=== PATIENT | female | born 2000 | race Caucasian/White ===

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

== ENCOUNTER 2020-10-25 07:28 | Inpatient (IN) ==
[2020-10-25] MEDS ORDERED: OXYTOCIN 30 UNITS/500 ML BAG IV PRN ×2 (07:59→08:02)
--- NOTE | 2020-10-25 08:04 | Obstetrical Progress Note ---
Date of Service cervical joy placed under sterile condition. 30cc saline into bulb, tolerated well October 25, 2020 Assessment & Plan Admission and Anticipated Discharge Date Admission Date: October 25, 2020 Results & Data ([facility]) Vital Signs (Past 12 Hours) Vital Signs Pulse BP 10/25/20 07:35 90 138/88 10/25/20 07:33 82 138/88 PG Care Time/CCT Total # of Minutes Spent Total Time Spent with Patient: Total time spent is greater than 50% in coordination of care (as documented) at patient's floor/unit and/or counseling patient: Coding Level of Care Code None CPT Codes Misx Procedure Codes - 23692 Placement of cervical dilator: 56799 Placement of cervical dilator ([id number]) 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
[2020-10-25 08:17] LABS: Hematocrit (blood only) 34.5 % (37-47); Hemoglobin 11.4 g/dL (12.0-16.0); Mean Corpuscular Hemoglobin 27.3 pg (25-34); Mean Corpuscular Volume 82.7 fL (80-100); Mean Platelet Volume 10.4 fL (7.4-10.4); Platelet Count 321 K/uL (130-400); RDW Standard Deviation 44.8 fL (36.4-46.3); Red Blood Count 4.17 M/uL (4.2-5.4)
[2020-10-25] MEDS ORDERED: PENICILLIN G POTASSIUM 6 MU in DEXTROSE 5% 250 ML IV ONE (08:30)
[2020-10-25] MEDS: LACTATED RINGER'S 1,000 ML IV PRN ×3 (08:50→20:34)
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
--- NOTE | 2020-10-25 11:04 | Labor Progress Brief Note ---
Date of Service October 25, 2020 Subjective joy bulb out Assessment & Plan (1) Supervision of normal intrauterine in primigravida: 20 y/o G1 at 40 wga presenting for elective IOL VSS Fetus cat 1 Labor - will start pit and titrate GBS+ - PCN epidural PRN (2) Morbid obesity: Admission and Anticipated Discharge Date Admission Date: October 25, 2020 Physical Exam Genitourinary: Manual OB Exam: + cervical dilation 3 cm, + cervical effacement 50% and + station -2 OB Exam Monitor Tracing: + external FHT monitor used, + external uterine monitor used (irreg ctx) and + category I (135/mod/+accel/- decel) Results & Data ([facility]) Vital Signs (Past 12 Hours) Vital Signs Temp Pulse Resp BP 10/25/20 10:46 76 125/63 10/25/20 07:38 98.8 F 20 10/25/20 07:35 90 138/88 10/25/20 07:33 82 138/88 Coding Level of Care Code None Diagnoses Supervision of normal intrauterine in primigravida Z34.00 Morbid obesity E66.01
[2020-10-25] MEDS: PENICILLIN G POTASSIUM 3 MU in DEXTROSE 5% 100 ML IV PRN ×3 (12:30→20:32)
--- NOTE | 2020-10-25 15:04 | Labor Progress Brief Note ---
Date of Service October 25, 2020 Subjective Feeling more contraction Assessment & Plan (1) Supervision of normal intrauterine in primigravida: 20 y/o G1 at 40 wga presenting for elective IOL VSS Fetus cat 1 Labor - pit at 13, now s/p arom GBS+ - PCN epidural PRN (2) Morbid obesity: Admission and Anticipated Discharge Date Admission Date: October 25, 2020 Physical Exam Genitourinary: Manual OB Exam: + cervical dilation (3-4cm), + cervical effacement 70%, + station -2 and + amniotic fluid (AROM) clear OB Exam Monitor Tracing: + external FHT monitor used, + external uterine monitor used (q2-3) and + category I (135/mod/+accel/-decel) Results & Data ([facility]) Vital Signs (Past 12 Hours) Vital Signs Temp Pulse Resp BP 10/25/20 14:42 77 158/76 H 10/25/20 13:30 70 18 116/55 L 10/25/20 12:38 72 124/60 10/25/20 11:55 73 128/74 10/25/20 10:46 98.2 F 76 20 125/63 10/25/20 07:38 98.8 F 20 10/25/20 07:35 90 138/88 10/25/20 07:33 82 138/88 Coding Level of Care Code None Diagnoses Supervision of normal intrauterine in primigravida Z34.00 Morbid obesity E66.01
[2020-10-25] MEDS ORDERED: SODIUM CHLORIDE 0.9% INJ 10 ML VIAL ONE (15:54)
[2020-10-25] MEDS ORDERED: ePHEDrine sulfate 50 MG/ML AMP ONE (15:54)
[2020-10-25] MEDS ORDERED: BUPIVACAINE 0.25% 30 ML VIAL ONE (15:55)
[2020-10-25] MEDS ORDERED: fentaNYL citrate 100 MCG/2 ML VIAL ONE (15:55)
[2020-10-25] MEDS ORDERED: fentaNYL 2MCG/ML ROPIVACAINE 1.25MG/ML 100 ML BAG EPI ONE (15:55)
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
[2020-10-25] MEDS ORDERED: fentaNYL 2MCG/ML ROPIVACAINE 1.25MG/ML 100 ML BAG EPI PRN (17:06)
[2020-10-25] MEDS ORDERED: NALOXONE HCL 1 MG in SODIUM CHLORIDE 0.9% 1000ML 1,000 ML IV PRN (17:06)
[2020-10-25] MEDS ORDERED: ePHEDrine sulfate 50 MG/ML AMP IV PRN (17:06)
[2020-10-25] MEDS ORDERED: diphenhydrAMINE 50 MG/ML VIAL IV PRN (17:06)
[2020-10-25] MEDS ORDERED: NALOXONE HCL 0.4 MG/1 ML VIAL/CARP IV PRN (17:06)
[2020-10-25] MEDS ORDERED: ONDANSETRON INJ 2 MG/ML 2 ML VIAL IV PRN (17:06)
--- NOTE | 2020-10-25 18:10 | Labor Progress Brief Note ---
Date of Service October 25, 2020 Subjective comfortable w/ epidural Assessment & Plan (1) Supervision of normal intrauterine in primigravida: 20 y/o G1 at 40 wga presenting for elective IOL VSS Fetus cat 1 Labor - pit at 17, continue titration GBS+ - PCN epidural in place (2) Morbid obesity: Admission and Anticipated Discharge Date Admission Date: October 25, 2020 Physical Exam Genitourinary: Manual OB Exam: + cervical dilation 4 cm, + cervical effacement 70% and + station -2 OB Exam Monitor Tracing: + external FHT monitor used, + external uterine monitor used (q2-5) and + category II (145/mod/- accel/intermittent variables) Results & Data ([facility]) Vital Signs (Past 12 Hours) Vital Signs Temp Pulse Resp BP Pulse Ox 10/25/20 18:04 95 H 121/69 10/25/20 18:03 99 H 98 10/25/20 18:00 77 116/56 L 10/25/20 17:58 74 98 10/25/20 17:54 75 114/57 L 10/25/20 17:53 78 96 10/25/20 17:50 20 10/25/20 17:48 74 115/64 97 10/25/20 17:45 81 122/57 L 10/25/20 17:43 80 99 10/25/20 17:39 75 124/56 L 10/25/20 17:38 76 97 10/25/20 17:35 20 10/25/20 17:33 87 116/62 100 10/25/20 17:30 95 H 116/66 10/25/20 17:28 77 98 10/25/20 17:23 92 H 125/63 99 10/25/20 17:20 20 10/25/20 17:18 79 128/61 100 10/25/20 17:13 90 109/55 L 100 10/25/20 17:09 99.7 F H 20 10/25/20 17:08 95 H 125/57 L 100 10/25/20 17:06 78 123/61 10/25/20 17:04 88 124/57 L 10/25/20 17:03 92 H 100 10/25/20 17:02 85 132/58 L 10/25/20 17:00 83 141/58 H 10/25/20 16:58 93 H 142/73 H 100 10/25/20 16:56 101 H 134/71 10/25/20 16:54 83 132/72 10/25/20 16:53 96 H 100 10/25/20 16:52 91 H 136/83 10/25/20 16:48 93 H 100 10/25/20 16:43 91 H 100 10/25/20 16:38 108 H 100 10/25/20 16:33 89 100 10/25/20 15:38 98.4 F 80 20 141/85 H 10/25/20 14:42 77 158/76 H 10/25/20 13:30 70 18 116/55 L 10/25/20 12:38 98.2 F 72 20 124/60 10/25/20 11:55 73 128/74 10/25/20 10:46 98.2 F 76 20 125/63 10/25/20 07:38 98.8 F 20 10/25/20 07:35 90 138/88 10/25/20 07:33 82 138/88 Coding Level of Care Code None Diagnoses Supervision of normal intrauterine in primigravida Z34.00 Morbid obesity E66.01
[2020-10-25] MEDS ORDERED: NURSING L&D Epidural Breakthrough Pain Update ONE (22:21)
--- NOTE | 2020-10-26 00:06 | Delivery Summary ---
Vaginal Delivery Summary Date of Service October 25, 2020 PREOPERATIVE DIAGNOSIS: 1. Single intrauterine at 40 wga 2. Elective IOL 3. GBS+ 4. BMI 49 POSTOPERATIVE DIAGNOSIS: 1. Single intrauterine at 40 wga 2. Elective IOL 3. GBS+ 4. BMI 49 5. Delivered PROCEDURE: 1. Normal spontaneous vaginal delivery. SURGEON: Cierra Boss MD ANESTHESIA: Epidural. ESTIMATED BLOOD LOSS: 300 mL FLUIDS: Continuous LR. URINE OUTPUT: None. COMPLICATIONS: None. CONDITION: Stable. INDICATIONS: 20 y/o G1 at 40wga presents for elective IOL. Penicillin was started for GBS ppx. SVE was 1cm on admission and so 30cc joy bulb was placed and pitocin was started. Pitocin was titrated up following joy bulb expulsion. She underwent artificial rupture of membranes and received epidural for pain control. She then progressed to complete and desired to push. FINDINGS: A viable female infant with Apgars of 8 and 9 at 1 and 5 minutes respectively. SPECIMEN: Cord blood OPERATIVE REPORT: The patient progressed to 10 cm, 100% effaced and +2 station, pushed over intact perineum with anesthesia to deliver a viable female infant, Apgars as above. Head of delivered in RAFAEL position. Tight nuchal cord was present and delivered through. Body and shoulders were delivered without difficulty. was delivered to maternal abdomen and nursing staff. Delayed cord clamping was performed for 60 seconds. Cord was clamped and cut. Cord blood was obtained. Placenta delivered spontaneously intact with 3-vessel cord. IV oxytocin and fundal massage were given but there was still atony noted and so bimanual massage was performed for excellent hemostasis. Vagina, cervix, perineum, and placenta were inspected. No lacerations were noted. Sponge and needle counts correct x2. No sponges were left behind. Mother and stable in immediate period. Vaginal Delivery Summary [facility] Vaginal Delivery Charge Vaginal Delivery Codes: 13279 global code for the antepartum, delivery, and post- Delivery Type Details: [facility]
[2020-10-26] MEDS ORDERED: DIPHTHERIA/TETANUS/PERTUSSIS 0.5 ML SYR/VIAL IM ONE (00:15)
[2020-10-26] MEDS ORDERED: HYDROCORTISONE ACETATE 25 MG SUPP PR PRN (00:15)
[2020-10-26] MEDS ORDERED: BENZOCAINE 20% AER SPR 82.5 GM CAN EXT PRN (00:15)
[2020-10-26] MEDS ORDERED: ACETAMINOPHEN 325 MG TAB PO PRN (00:15)
[2020-10-26] MEDS ORDERED: OXYTOCIN 30 UNITS/500 ML BAG IV PRN (00:15)
[2020-10-26] MEDS ORDERED: SUPERCREAM 0.870% 15 GM JAR EXT PRN (00:15)
[2020-10-26] MEDS ORDERED: bisacodyL 10 MG SUPP PR PRN (00:15)
--- NOTE | 2020-10-26 00:27 | Anesthesia Procedure Note ---
Date of Service October 26, 2020 Anesthesia Post Epidural Note Vital Signs Vital Signs: Temp Pulse Resp BP Pulse Ox 36.8 C 83 20 118/58 L 98 10/25/20 22:20 10/26/20 00:10 10/25/20 23:30 10/26/20 00:10 10/25/20 23:53 Pain Intensity Bilateral Abdomen: Pain Intensity: 8 Notes Mental Status: alert / awake / arousable and participated in evaluation Nausea / Vomiting: adequately controlled Pain: adequately controlled Airway Patency, RR, SpO2: stable & adequate BP & HR: stable & adequate Hydration State: stable & adequate Neuraxial Anesthesia: was administered and sensory block is resolving Anesthetic Complications: no major complications apparent and Pt Satisfied with anesthetic care Epidural: Removed without complications and With tip intact Notes: Epidural site clean, dry and intact. No signs of edema, erythema or bruising at insertion site. Pt instructed to request anesthesia if she has residual lower extremity numbness or if she develops lower extremity pain or weakness, back pain or headache.
[2020-10-26] MEDS: IBUPROFEN 600 MG TAB PO PRN ×3 (01:33→16:00)
--- NOTE | 2020-10-26 05:34 | Obstetrical Progress Note ---
Date of Service <Dre Bill MD - Last Filed: 10/26/20 06:29> October 26, 2020 Assessment & Plan <Dre Bill MD - Last Filed: 10/26/20 06:29> (1) (spontaneous vaginal delivery): Ayala is a 20 y/o female who is now PPD #0 following elective IOL with at 40 weeks (delivered just before midnight on 10/25). Her was notable for treated Chlamydia infection in 11/2019, with retest at 36wga negative, alongside morbid obesity. - Feels well overall. Eating well, voiding well, ambulating well. - Pain well controlled with ibuprofen 600mg Q4H PRN. - Routine PPD care -- OOB, ambulation, diet - After discharge will have [address] Boss Subjective <Dre Bill MD - Last Filed: 10/26/20 06:29> Ayala is a 20 y/o female who is now PPD #0 following elective IOL with at 40 weeks. Reports feeling well overall this morning. Endorses mild abdominal cramping + pain well managed on analgesics. Voiding without difficulty. Tolerating meals well and able to ambulate some. Some persistent lochia with some improvement this morning. Bottle feeding Review of Systems Denies fever, chills, sweats Denies shortness of breath, difficulty breathing, chest pain, palpitations, chest pressure. Denies breast pain. Denies dysuria. Denies headache or changes in vision. Physical Exam <Dre Bill MD - Last Filed: 10/26/20 06:29> General: Alert, oriented. No acute distress. Cardiac: Regular rate and rhythm, no murmurs/rubs/gallops. Respiratory: Clear to auscultation bilaterally a/p, no wheezes/rales/rhonchi. No increased work of breathing. Symmetrical chest rise. No respiratory distress. Abdomen: Soft, nontender, nondistended. Bowel sounds present. Uterus: Uterine fundus firm, palpable 1-2 cm below umbilicus. Lower Extremities: No lower extremity edema or swelling. No deep calf pain. Garry's negative bilaterally. Results & Data ([facility]) <Dre Bill MD - Last Filed: 10/26/20 06:29> Vital Signs (Past 12 Hours) Vital Signs Temp Pulse Pulse Resp BP BP Pulse Ox 10/26/20 02:15 37.3 C 76 20 120/79 97 10/26/20 02:00 36.8 C 18 10/26/20 01:55 81 109/56 L 10/26/20 01:40 74 116/63 10/26/20 01:25 83 18 114/60 10/26/20 01:10 86 108/56 L 10/26/20 00:55 77 18 109/58 L 10/26/20 00:40 81 18 117/59 L 10/26/20 00:26 87 123/65 10/26/20 00:25 18 10/26/20 00:10 83 18 118/58 L 10/25/20 23:56 86 127/59 L 10/25/20 23:55 36.8 C 18 10/25/20 23:53 86 98 10/25/20 23:51 87 122/60 10/25/20 23:48 86 99 10/25/20 23:43 96 H 100 10/25/20 23:38 98 H 100 10/25/20 23:33 97 H 100 10/25/20 23:30 20 10/25/20 23:28 83 100 10/25/20 23:23 96 H 98 10/25/20 23:21 111 H 120/61 10/25/20 23:18 99 H 100 10/25/20 23:13 111 H 100 10/25/20 23:08 88 100 10/25/20 23:06 117 H 123/76 10/25/20 23:03 91 H 100 10/25/20 23:00 20 10/25/20 22:58 80 100 10/25/20 22:53 84 100 10/25/20 22:51 83 121/60 10/25/20 22:48 85 100 10/25/20 22:43 90 100 10/25/20 22:38 102 H 100 10/25/20 22:36 93 H 153/76 H 10/25/20 22:33 97 H 100 10/25/20 22:30 20 10/25/20 22:28 92 H 100 10/25/20 22:23 96 H 100 10/25/20 22:22 95 H 151/84 H 10/25/20 22:20 36.8 C 10/25/20 22:18 91 H 100 10/25/20 22:13 98 H 100 10/25/20 22:08 95 H 100 10/25/20 22:07 78 130/74 10/25/20 22:03 85 100 10/25/20 22:00 20 10/25/20 21:58 89 100 10/25/20 21:53 90 100 10/25/20 21:51 96 H 125/76 10/25/20 21:48 107 H 100 10/25/20 21:43 106 H 100 10/25/20 21:38 93 H 100 10/25/20 21:36 108 H 135/87 10/25/20 21:33 112 H 100 10/25/20 21:28 114 H 100 10/25/20 21:23 98 H 100 10/25/20 21:21 80 123/58 L 10/25/20 21:18 78 100 10/25/20 21:13 81 100 10/25/20 21:08 82 100 10/25/20 21:06 87 124/58 L 10/25/20 21:03 108 H 100 10/25/20 21:00 37.2 C 20 10/25/20 20:58 97 H 100 10/25/20 20:54 95 H 91 10/25/20 20:53 92 H 100 10/25/20 20:51 93 H 131/78 10/25/20 20:48 81 100 10/25/20 20:43 86 100 10/25/20 20:38 91 H 97 10/25/20 20:36 91 H 123/69 10/25/20 20:33 91 H 100 10/25/20 20:30 20 10/25/20 20:28 99 H 100 10/25/20 20:23 96 H 100 10/25/20 20:21 106 H 127/62 10/25/20 20:20 95 H 94 10/25/20 20:18 97 H 100 10/25/20 20:13 105 H 100 10/25/20 20:10 99 H 91 10/25/20 20:08 73 124/60 100 10/25/20 20:03 87 100 10/25/20 20:00 20 10/25/20 19:58 87 100 10/25/20 19:53 79 100 10/25/20 19:51 76 118/57 L 10/25/20 19:49 82 92 10/25/20 19:48 80 96 10/25/20 19:43 82 100 10/25/20 19:38 85 100 10/25/20 19:33 98 H 99 10/25/20 19:30 20 10/25/20 19:28 92 H 100 10/25/20 19:23 84 100 10/25/20 19:22 89 115/57 L 10/25/20 19:18 88 100 10/25/20 19:13 87 100 10/25/20 19:09 36.7 C 18 10/25/20 19:08 85 100 10/25/20 19:06 36.7 C 93 H 18 105/59 L 10/25/20 19:03 76 100 10/25/20 18:58 77 100 10/25/20 18:53 72 100 10/25/20 18:52 80 114/59 L 10/25/20 18:48 80 100 10/25/20 18:44 37.3 C 10/25/20 18:43 87 100 10/25/20 18:38 81 100 10/25/20 18:36 92 H 119/63 10/25/20 18:33 98 H 100 10/25/20 18:28 87 100 10/25/20 18:23 79 99 10/25/20 18:20 20 10/25/20 18:19 89 116/56 L 10/25/20 18:18 82 97 10/25/20 18:14 93 H 116/69 10/25/20 18:13 82 98 10/25/20 18:08 102 H 127/78 100 10/25/20 18:06 20 10/25/20 18:04 95 H 121/69 10/25/20 18:03 99 H 98 10/25/20 18:00 77 116/56 L 10/25/20 17:58 74 98 10/25/20 17:54 75 114/57 L 10/25/20 17:53 78 96 10/25/20 17:50 20 10/25/20 17:48 74 115/64 97 10/25/20 17:45 81 122/57 L 10/25/20 17:43 80 99 10/25/20 17:39 75 124/56 L 10/25/20 17:38 76 97 10/25/20 17:35 20 10/25/20 17:33 87 116/62 100 <Cierra Boss MD - Last Filed: 10/26/20 09:16> Co-Signing Physician Notes Resident Physician Supervision Note: I interviewed and examined the patient. Discussed with Dr. Bill and agree with findings and plan as documented in the note. Any exceptions or clarifications are listed here: POD1 s/p . Meeting all milestones, continue routine pp care Documented By: Cierra Boss MD Resident Activity Tracking <Dre Bill MD - Last Filed: 10/26/20 06:29> Resident Involvement: Resident Care Provided Care Provided: Adult Hospital Medicine and OB Delivery
[2020-10-26 06:54] LABS: Hematocrit (blood only) 31.2 % (37-47); Hemoglobin 10.3 g/dL (12.0-16.0); Mean Corpuscular Hemoglobin 27.5 pg (25-34); Mean Corpuscular Volume 83.2 fL (80-100); Mean Platelet Volume 10.6 fL (7.4-10.4); Platelet Count 294 K/uL (130-400); RDW Coefficient of Variation 15.2 % (11.5-14.5); RDW Standard Deviation 45.9 fL (36.4-46.3); Red Blood Count 3.75 M/uL (4.2-5.4); White Blood Count 18.51 K/uL (4.8-10.8)
[2020-10-26] MEDS: FERROUS SULFATE 325 MG TAB PO SCH (08:30)
[2020-10-26] MEDS: DOCUSATE SODIUM 100 MG CAP PO SCH ×2 (08:30→20:35)
[2020-10-26] MEDS: PRENATAL VITAMIN 1 TAB PO SCH (08:30)
[2020-10-26] MEDS ORDERED: bisacodyL 5 MG TABEC PO SCH (20:00)
[2020-10-27] MEDS: IBUPROFEN 600 MG TAB PO PRN ×2 (00:15→05:48)
[2020-10-27 06:46] LABS: Hematocrit (blood only) 28.9 % (37-47); Hemoglobin 9.3 g/dL (12.0-16.0)
--- NOTE | 2020-10-27 07:15 | Obstetrical Progress Note ---
Date of Service <Dre Bill MD - Last Filed: 10/27/20 08:10> October 27, 2020 Assessment & Plan <Dre Bill MD - Last Filed: 10/27/20 08:10> (1) (spontaneous vaginal delivery): Ayala is a 20 y/o female who is now PPD #1 following elective IOL with at 40 weeks (delivered just before midnight on 10/25). Her was notable for treated Chlamydia infection in 11/2019, with retest at 36wga negative, alongside morbid obesity. - Feels well overall. Eating well, voiding well, ambulating well. - Pain well controlled with ibuprofen 600mg Q4H PRN. - Routine PPD care -- OOB, ambulation, diet - Technically is PPD1. Can consider d/c later today if desired by patient. - After discharge will have [address] Boss Subjective <Dre Bill MD - Last Filed: 10/27/20 08:10> Ayala is a 20 y/o female who is now PPD #1 following elective IOL with at 40 weeks. Reports feeling well overall this morning. Endorses mild abdominal cramping + pain well managed on analgesics. Voiding without difficulty. Tolerating meals well and able to ambulate some. Some persistent lochia with some improvement this morning. Bottle feeding Review of Systems Denies fever, chills, sweats Denies shortness of breath, difficulty breathing, chest pain, palpitations, chest pressure. Denies breast pain. Denies dysuria. Denies headache or changes in vision. Physical Exam <Dre Bill MD - Last Filed: 10/27/20 08:10> General: Alert, oriented. No acute distress. Cardiac: Regular rate and rhythm, no murmurs/rubs/gallops. Respiratory: Clear to auscultation bilaterally a/p, no wheezes/rales/rhonchi. No increased work of breathing. Symmetrical chest rise. No respiratory distress. Abdomen: Soft, nontender, nondistended. Bowel sounds present. Uterus: Uterine fundus firm, palpable 1-2 cm below umbilicus. Lower Extremities: No lower extremity edema or swelling. No deep calf pain. Garry's negative bilaterally. Results & Data ([facility]) <Dre Bill MD - Last Filed: 10/27/20 08:10> Vital Signs (Past 12 Hours) Vital Signs Temp Pulse Resp BP Pulse Ox 10/27/20 00:20 36.6 C 74 16 133/91 99 10/26/20 19:38 36.9 C 76 16 122/77 98 <Maury Rodriguez MD - Last Filed: 10/28/20 12:49> Co-Signing Physician Notes Patient seen and evaluated and agree with the above findings and plan. Stable for discharge Resident Activity Tracking <Dre Bill MD - Last Filed: 10/27/20 08:10> Resident Involvement: Resident Care Provided Care Provided: Adult Hospital Medicine and OB Delivery
[2020-10-27] MEDS: DOCUSATE SODIUM 100 MG CAP PO SCH (08:52)
[2020-10-27] MEDS: PRENATAL VITAMIN 1 TAB PO SCH (08:53)
[2020-10-27] MEDS: FERROUS SULFATE 325 MG TAB PO SCH (08:53)
== END 2020-10-27 12:00 | disposition home or self-care (01) | DRG 806 ==
LOC: 4S1 07:28 → 4S2 10-26 02:00